=== PATIENT | male | born 1975 | race Caucasian/White ===

== ENCOUNTER 2020-09-21 10:41 | Emergency (ER) | payer SELFPAY ==
--- NOTE | 2020-09-21 14:22 | EDPHYS ---
Physician Documentation [facility] Name: Salbador Ta Jr Age: 45 yrs Sex: Male : 1975 Arrival Date: 09/21/2020 Time: 10:51 Bed 27 Private MD: ED Physician Amauri Ta HPI: 09/21 14:04 This 45 yrs old Male presents to ER via Ambulatory with complaints of Ear jr8 Pain, Drainage From Ear. 14:06 Patient stated that he has had two days of right ear pain and rash near the right ear. jr8 Stated that today felt lump on back of ear and now having headache with pain extending down jaw line. Stated that he also felt tender raw lesion on right mouth as well . Severity of symptoms: At their worst the symptoms were mild in the emergency department the symptoms are unchanged. The patient has not experienced similar symptoms in the past. The patient has not recently seen a physician. Historical: - Allergies: 12:03 No Known Allergies; ca1 - Home Meds: 12:03 Metformin Oral [Active]; Glipizide Oral [Active]; ca1 - PMHx: 12:03 Diabetes - NIDDM; Gastric Reflux; Myocardial infarction; ca1 12:03 Hypertension; High Cholesterol; ca1 - PSHx: 12:03 Hernia repair; ca1 - Immunization history:: Flu vaccine is up to date. - Social history:: Smoking status: Patient/guardian denies using tobacco, the patient reports quitting approximately 7 years ago. ROS: 14:06 Eyes: Negative for injury, pain, redness, and discharge, Neck: Negative for injury, jr8 pain, and swelling, Cardiovascular: Negative for chest pain, palpitations, and edema, Respiratory: Negative for shortness of breath, cough, wheezing, and pleuritic chest pain, Abdomen/GI: Negative for abdominal pain, nausea, vomiting, diarrhea, and constipation, Back: Negative for injury and pain, MS/Extremity: Negative for injury and deformity. 14:06 ENT: Positive for ear pain 14:06 Skin: Positive for lesions, rash, of the face and mouth. 14:06 Neuro: Positive for headache. Exam: 14:06 Head/Face: Normocephalic, atraumatic. Eyes: Pupils equal round and reactive to light, jr8 extra-ocular motions intact. Lids and lashes normal. Conjunctiva and sclera are non-icteric and not injected. Cornea within normal limits. Periorbital areas with no swelling, redness, or edema. Neck: Trachea midline, no thyromegaly or masses palpated, and no cervical lymphadenopathy. Supple, full range of motion without nuchal rigidity, or vertebral point tenderness. No Meningismus. Cardiovascular: Regular rate and rhythm with a normal S1 and S2. No gallops, murmurs, or rubs. Normal PMI, no JVD. No pulse deficits. Respiratory: Lungs have equal breath sounds bilaterally, clear to auscultation and percussion. No rales, rhonchi or wheezes noted. No increased work of breathing, no retractions or nasal flaring. Abdomen/GI: Soft, non-tender, with normal bowel sounds. No distension or tympany. No guarding or rebound. No evidence of tenderness throughout. Back: No spinal tenderness. No costovertebral tenderness. Full range of motion. Skin: Warm, dry with normal turgor. Normal color MS/ Extremity: Pulses equal, no cyanosis. Neurovascular intact. Full, normal range of motion. Neuro: Awake and alert, GCS 15, oriented to person, place, time, and situation. Cranial nerves II-XII grossly intact. Motor strength 5/5 in all extremities. Sensory grossly intact. Cerebellar exam normal. Normal gait. 14:06 ENT: External ear(s): Post auricular lymph node on right side. vesicular rash noted to preauricular region , Ear canal(s): swelling, that is minimal, of the right canal, TM's: are normal, no evidence of bulging, no dullness, no erythema, no fluid levels, no hemotympanum, no rupture, normal bony landmarks, normal mobility, Nose: is normal, Mouth: Lips: moist, Oral mucosa: noted to have ulceration(s), Posterior pharynx: is normal, airway is patent, no erythema, no exudate, no peritonsilar mass, no pooling of secretions, no swelling. Vital Signs: 11:59 BP 125 / 94; Pulse 97; Resp 16 S; Temp 97.6(TE); Pulse Ox 98% on R/A; Weight 131.54 kg ca1 (R); Height 6 ft. 3 in. (190.50 cm) (R); Pain 10/10; 11:59 Body Mass Index 36.25 (131.54 kg, 190.50 cm) ca1 MDM: 13:49 Patient medically screened. jr8 14:06 Data reviewed: vital signs, nurses notes, and as a result, I will discharge patient. jr8 Data interpreted: Pulse oximetry: on room air is 98 %. Interpretation: normal. Counseling: I had a detailed discussion with the patient and/or guardian regarding: the historical points, exam findings, and any diagnostic results supporting the discharge/admit diagnosis, the need for outpatient follow up, a family practitioner, to return to the emergency department if symptoms worsen or persist or if there are any questions or concerns that arise at home. Administered Medications: No medications were administered Disposition: 15:06 Co-signature as Attending Physician, Amauri Ta MD I agree with the assessment and joel plan of care. Disposition: 09/21/20 14:21 Discharged to Home. Impression: Zoster [herpes zoster], Local infection of the skin and subcutaneous tissue, unspecified. - Condition is Stable. - Discharge Instructions: Shingles. - Prescriptions for Amoxicillin 875 mg Oral Tablet - take 1 tablet by ORAL route every 12 hours for 10 days; 14 tablet. Acyclovir 800 mg Oral Tablet - take 1 tablet by ORAL route 5 times per day for 7 days; 35 tablet. Tylenol- Codeine #3 300-30 mg Oral Tablet - take 2 tablets by ORAL route every 4-6 hours As needed; 20 tablet. - Medication Reconciliation Form, Thank You Letter, Antibiotic Education, Prescription Opioid Use form. - Follow up: Private Physician; When: 5 - 6 days; Reason: Recheck today's complaints, Continuance of care, Re-evaluation by your physician. - Problem is new. - Symptoms have improved. Signatures: Skyler Mujica RN RN sg Anderson, Corey, MD MD cha Roszak, Josh, PA PA jr8 Alexnadria Kc RN RN ca1 Corrections: (The following items were deleted from the chart) 14:48 14:21 09/21/2020 14:21 Discharged to Home. Impression: Zoster [herpes zoster]; Local sg infection of the skin and subcutaneous tissue, unspecified. Condition is Stable. Forms are Medication Reconciliation Form, Thank You Letter, Antibiotic Education, Prescription Opioid Use. Follow up: Private Physician; When: 5 - 6 days; Reason: Recheck today's complaints, Continuance of care, Re-evaluation by your physician. Problem is new. Symptoms have improved. jr8
--- NOTE | 2020-09-21 14:22 | ER ---
Nurse's Notes [facility] Name: Salbador Ta Jr Age: 45 yrs Sex: Male : 1975 Arrival Date: 09/21/2020 Time: 10:51 Bed 27 Private MD: Diagnosis: Zoster [herpes zoster];Local infection of the skin and subcutaneous tissue, unspecified Presentation: 09/21 11:59 Chief complaint: Patient states: I got a severe R ear infection causing the R side of ca1 my face to hurt up to my R jaw. I got a knot at the back of my R ear and got fluid drainage from my R ear. Coronavirus screen: Client denies travel out of the [place] in the last 14 days. At this time, the client does not indicate any symptoms associated with coronavirus-19. Ebola Screen: Patient negative for fever greater than or equal to 101.5 degrees Fahrenheit, and additional compatible Ebola Virus Disease symptoms Patient denies exposure to infectious person. Patient denies travel to an Ebola-affected area in the 21 days before illness onset. No symptoms or risks identified at this time. Initial Sepsis Screen: Does the patient meet any 2 criteria? No. Patient's initial sepsis screen is negative. Does the patient have a suspected source of infection? No. Patient's initial sepsis screen is negative. Risk Assessment: Do you want to hurt yourself or someone else? Patient reports no desire to harm self or others. Onset of symptoms was September 21, 2020. 11:59 Method Of Arrival: Ambulatory ca1 11:59 Acuity: CLARK 3 ca1 Historical: - Allergies: 12:03 No Known Allergies; ca1 - Home Meds: 12:03 Metformin Oral [Active]; Glipizide Oral [Active]; ca1 - PMHx: 12:03 Diabetes - NIDDM; Gastric Reflux; Myocardial infarction; ca1 12:03 Hypertension; High Cholesterol; ca1 - PSHx: 12:03 Hernia repair; ca1 - Immunization history:: Flu vaccine is up to date. - Social history:: Smoking status: Patient/guardian denies using tobacco, the patient reports quitting approximately 7 years ago. Screenin:00 Abuse screen: Denies threats or abuse. Nutritional screening: No deficits noted. aa5 Tuberculosis screening: No symptoms or risk factors identified. Fall Risk None identified. Assessment: 14:00 General: Appears comfortable, Behavior is calm, cooperative. Pain: Complains of pain in aa5 face. Neuro: Level of Consciousness is awake, alert, obeys commands, Oriented to person, place, time, situation. Cardiovascular: Patient's skin is warm and dry. Respiratory: Airway is patent Respiratory effort is even, unlabored, Respiratory pattern is regular, symmetrical. GI: Abdomen is round. : No signs and/or symptoms were reported regarding the genitourinary system. EENT: Reports pain in right ear and left ear. Derm: Skin is pink, warm \T\ dry. Rash noted that is vesicular, on right side of face and neck. Musculoskeletal: Range of motion: intact in all extremities. 14:45 Reassessment: Patient is alert, oriented x 3, equal unlabored respirations, skin aa5 warm/dry/pink. Vital Signs: 11:59 BP 125 / 94; Pulse 97; Resp 16 S; Temp 97.6(TE); Pulse Ox 98% on R/A; Weight 131.54 kg ca1 (R); Height 6 ft. 3 in. (190.50 cm) (R); Pain 10/10; 11:59 Body Mass Index 36.25 (131.54 kg, 190.50 cm) ca1 ED Course: 10:51 Patient arrived in ED. ds1 12:01 Triage completed. ca1 12:03 Arm band placed on right wrist. ca1 13:49 Bucky Shrestha PA is PHCP. jr8 13:49 Amauri Ta MD is Attending Physician. jr8 13:53 Mignon Hampton, RN is Primary Nurse. aa5 14:00 Patient has correct armband on for positive identification. Bed in low position. aa5 14:46 No provider procedures requiring assistance completed. Patient did not have IV access aa5 during this emergency room visit. Administered Medications: No medications were administered Outcome: 14:21 Discharge ordered by . jr8 14:46 Discharged to home ambulatory. aa5 14:46 Condition: stable 14:46 Discharge instructions given to patient, Instructed on discharge instructions, follow up and referral plans. medication usage, Demonstrated understanding of instructions, follow-up care, medications, Prescriptions given X 3. 14:48 Patient left the ED. sg Signatures: Sykler Mujica RN RN Lily Webster ds1 Mignon Hampton, RN RN aa5 Bucky Shrestha PA PA jr8 Alexandria Kc RN RN ca1 Corrections: (The following items were deleted from the chart) 12:05 11:59 Acuity: CLRAK 4 ca1 ca1
== END 2020-09-21 14:48 | disposition home or self-care (01) ==
LOC: ER 10:41
DX: B02.9 Zoster without complications (principal); L08.9 Local infection of the skin and subcutaneous tissue, unspecified; H92.01 Otalgia, right ear; I10 Essential (primary) hypertension; E11.9 Type 2 diabetes mellitus without complications
CPT/HCPCS: 99282